=== PATIENT | female | born 1975 | race Caucasian/White ===

== ENCOUNTER 2017-08-09 00:55 | Emergency (ER) | payer MEDICAID, SELFPAY ==
[2017-08-09 00:56] VITALS: BP 123/83; PULSE 58; RESP 20; TEMP 36.9; O2SAT 100; BMI 31.8
--- NOTE | 2017-08-09 01:12 | XR_ITS ---
XR chest 2V HISTORY: ITS.REASON: CHEST PAIN ORDERING PHYSICIAN: Brant Walters MD PATIENT AGE: 41 years COMPARISON: None available FINDINGS: The cardiomediastinal silhouette and pulmonary vascularity are within normal limits. The lungs are clear without infiltrates, suspicious nodules, or pleural effusions. No acute bony abnormalities. IMPRESSION: Negative chest, no acute finding
[2017-08-09 01:27] LABS: Basophils # 0.1 K/mm3 (0-0.2); Basophils % 0.3 % (0.1-2.0); Eosinophils # 0.4 K/mm3 (0.0-0.4); Eosinophils % 3.1 % (0.1-12.0); Hematocrit 38.2 % (37.0-47.0); Hemoglobin 13.3 g/dL (12.2-16.2); Lymphocytes # 4.6 K/mm3 (0.7-4.5); Lymphocytes % 34.5 K/mm3 (10-50); Mean Corpuscular HGB Conc 34.9 g/dL (31.8-35.4); Mean Corpuscular Hemoglobin 31.8 pg (27.0-31.2); Mean Corpuscular Volume 91.2 fl (81-99); Mean Platelet Volume 9.3 fl (7.4-10.4); Monocytes # 0.6 K/mm3 (0.1-1.0); Monocytes % 4.6 % (1.7-9.3); Neutrophils # 7.6 K/mm3 (1.8-7.8); Neutrophils % 57.4 % (37.0-80.0); Platelet Count 215 K/mm3 (142-424); Red Blood Count 4.18 M/mm3 (4.20-5.40); Red Cell Distribution Width 13.1 % (11.5-17.5); White Blood Count 13.3 K/mm3 (4.8-10.8)
--- NOTE | 2017-08-09 01:33 | HMH.EDCP ---
ED Disposition Clinical Impression: Atypical chest pain, Costalchondritis Disposition: Home, Self-Care Condition on Discharge: Good Instructions: DI for Atypical Chest Pain Additional Instructions: use meds and see pcp for follow up Prescriptions: Benzonatate [Tessalon Perle 100mg Cap] 100 mg PO TID #30 cap Referrals: Non User,Provider [Primary Care Provider] - - Critical Care Critical Care Time: No Attestation: On , the high probability of a clinically significant, sudden or life threatening deterioration of the following system(s) required my full and direct attention, intervention and personal management. The time I documented below is in addition to time spent performing reported procedures but includes the following listed in this critical care notation. Medical Decision Making - Medical Records Medical records reviewed: Yes: I reviewed the patient's medical records. Vital Signs: 08/09/17 00:56 08/09/17 02:01 Temperature 98.5 F Temperature Source Oral Pulse Rate [Right Brachial] 58 L 65 Respiratory Rate 20 18 Blood Pressure [Right Arm] 123/83 127/81 Blood Pressure Mean [Right Arm] 96 96 Blood Pressure Source [Right Arm] Automatic Cuff Automatic Cuff Blood Pressure Position [Right Arm] Sitting Sitting 02 Sat by Pulse Oximetry 100 100 Oxygen Delivery Method Room Air Room Air - Lab Data Lab results reviewed: Yes: I reviewed the patient's lab results. Lab Results 08/09/17 01:09: WBC 13.3 H, RBC 4.18 L, Hgb 13.3, Hct 38.2, MCV 91.2, MCH 31.8 H, MCHC 34.9, RDW 13.1, Plt Count 215, MPV 9.3, Neut % (Auto) 57.4, Lymph % (Auto) 34.5, [place] % (Auto) 4.6, Eos % (Auto) 3.1, Baso % (Auto) 0.3, Neut # (Auto) 7.6, Lymph # (Auto) 4.6 H, [place] # (Auto) 0.6, Eos # (Auto) 0.4, Baso # (Auto) 0.1 08/09/17 01:09: Sodium 140, Potassium 3.5, Chloride 104, Carbon Dioxide 28, Anion Gap 11.5, BUN 11, Creatinine 0.72, Estimated Creat Clear 135, Estimated GFR 90, Est GFR ( Amer) 109, Glucose 98, Calcium 8.7, Total Bilirubin 0.3, AST 12 L, ALT 25, Alkaline Phosphatase 93, Total Creatine Kinase 59, CK-MB (CK-2) < 0.5, CK-MB (CK-2) Rel Index 0.8, Troponin I < 0.02, Total Protein 7.0, Albumin 3.5, Globulin 3.5 H, Albumin/Globulin Ratio 1.0 L Result diagrams: 08/09/17 01:09 08/09/17 01:09 Orders (Tests/Meds): ED MEDICATIONS Discontinued Medications Generic Name Dose Route Start Last Admin Trade Name Calin PRN Reason Stop Dose Admin Aspirin 324 mg 08/09/17 01:16 08/09/17 01:17 Aspirin 81mg Chewable Tablet PO 08/09/17 01:17 324 mg ONCE ONE Administration ORDERS Category Date Time Status Chest XR 2 view (NOT portable) [XR chest 2V] Stat Exams 08/09/17 01:12 Taken ECG Request by /Emil Stat Y 08/09/17 01:11 Ordered - Radiology Data #1 Image(s): Chest Image Reviewed: Yes I reviewed the patient's radiology image Preliminary Findings: Normal/NAD - ECG Data Tracing #1 I reviewed this ECG and interpreted as documented below: Ischemic changes: non-specific ST-T wave changes - Andres Inquiry Pt receiving controlled substance: No Chest Pain HPI - General Chief Complaint: Chest Pain Stated Complaint: CHEST PAIN AND SOB Mode of Arrival: Family Vehicle Limitations: No Limitations Description of Symptoms (Recalled from ER Triage Doc. 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
[2017-08-09 01:52] LABS: Alanine Aminotransferase 25 U/L (12-78); Albumin Level 3.5 gm/dL (3.4-5.0); Alkaline Phosphatase 93 U/L (46-116); Anion Gap 11.5 mEq/L (5-15); Aspartate Amino Transferase 12 U/L (15-37); Bilirubin,Total 0.3 mg/dL (0.2-1.0); Blood Urea Nitrogen 11 mg/dL (7-18); Calcium 8.7 mg/dL (8.5-10.1); Carbon Dioxide 28 mmol/L (21.0-32.0); Chloride 104 mmol/L (98-107); Creatine Kinase 59 U/L (26-192); Creatinine Clearance Estimated 135 mL/min (0-300); Creatinine,Serum 0.72 mg/dL (0.55-1.02); Estimated Glomerular Filt Rate 90 ml/min (>60); GFR (African American) 109 ML/MIN (>60); Globulin 3.5 gm/dl (1.3-3.2); Glucose 98 mg/dL (74-106); Potassium 3.5 mmoL/L (3.5-5.1); Sodium 140 mmol/L (136-145); Troponin I < 0.02 ng/ml (0.00-0.06)
[2017-08-09 01:58] LABS: CKMB Relative Index 0.8 U/L (0-4.0); Creatine Kinase MB < 0.5 mg/ml (0.0-3.6)
[2017-08-09 02:01] VITALS: BP 127/81; PULSE 65; RESP 18; O2SAT 100
== END 2017-08-09 02:33 | disposition home or self-care (01) ==
PROVIDERS: Emergency Provider Emergency Medicine
DX: R07.89 Other chest pain (principal); M94.0 Chondrocostal junction syndrome [Tietze]; E11.9 Type 2 diabetes mellitus without complications; F17.210 Nicotine dependence, cigarettes, uncomplicated; Z79.84 Long term (current) use of oral hypoglycemic drugs; Z79.899 Other long term (current) drug therapy
CPT/HCPCS: 71046; 80053; 82550; 82553; 84484; 85025; 93005; 93041; 96374; 99284

== ENCOUNTER 2020-10-21 09:49 | Emergency (ER) | payer OTHER, SELFPAY ==
[2020-10-21 10:00] VITALS: BP 143/84; PULSE 87; RESP 19; TEMP 36.8; O2SAT 100; BMI 32.4
--- NOTE | 2020-10-21 10:14 | XR_ITS ---
PROCEDURE: XR SHOULDER RT MIN 2V CLINICAL INDICATION: INJURY Injury with pain COMPARISON: No exams were available for comparison FINDINGS: No fracture or dislocation. No lytic or blastic change. There is normal mineralization. The joint spaces are well-preserved. No significant degenerative/arthritic changes. No erosive changes evident. Other findings:None. IMPRESSION: No acute findings. Dictated by: Syed Pace MD 10/21/2020 10:51 Syed Pace MD in [place] 10/21/2020 10:51
--- NOTE | 2020-10-21 10:14 | XR_ITS ---
PROCEDURE: XR HUMERUS RT CLINICAL INDICATION: INJURY Pain COMPARISON: No exams were available for comparison FINDINGS: No fracture or dislocation. No lytic or blastic change. There is normal mineralization. The joint spaces are well-preserved. No significant degenerative/arthritic changes. No erosive changes evident. Other findings:None. IMPRESSION: No acute findings. Dictated by: Syed Pace MD 10/21/2020 10:50 Syed Pace MD in [place] 10/21/2020 10:50
--- NOTE | 2020-10-21 10:37 | HMH.EDUTC ---
[facility] [place] Disposition Clinical Impression: Shoulder strain Qualifiers: Encounter type: initial encounter Laterality: right Qualified Code(s): S46.911A - Strain of unspecified muscle, fascia and tendon at shoulder and upper arm level, right arm, initial encounter Disposition: Home, Self-Care Condition on Discharge: Good Instructions: How to Use a Sling, How To Perform RICE (Rest, Ice, Compress, Elevate), Ibuprofen Additional Instructions: *RICE, Rest the extremity, Ice 15-20 minutes 3-4 times daily, Compress- wear the alexia wrap as discussed as much as possible to help reduce swelling and pain, Elevate the extremity when at rest *Sling is for support and help control swelling, use it except in the shower. Be sure that is not to tight but not to loose either *Elevate when resting *Ibuprofen every 6-8 hours as needed for pain an inflammation. If need something more can take Tylenol in between doses of Ibuprofen to help Immediately follow up with your family doctor for new or worsening of symptoms, or no noticeable improvement over the next 3-[address] Bazan office will call you later with appointment Return if needed Straight to ER if life threatening symptoms Referrals: PCP,No [Primary Care Provider] - As needed Catherine Bazan MD [Physician] - As needed Forms: Work/School Release Time of Disposition: 10:56 Medical Decision Making - Andres Inquiry Pt receiving controlled substance: Chantell Campos was queried for this patient: No Vital Signs: 10/21/20 10:00 10/21/20 11:00 Temperature 98.2 F 98.2 F Temperature Source Oral Pulse Rate 87 Pulse Rate [Right Brachial] 87 Respiratory Rate 19 19 Blood Pressure 143/84 H Blood Pressure [Right Arm] 143/84 H Blood Pressure Mean [Right Arm] 103 Blood Pressure Source [Right Arm] Automatic Cuff Blood Pressure Position [Right Arm] Sitting 02 Sat by Pulse Oximetry 100 Oxygen Delivery Method Room Air Orders (Tests/Meds): ED MEDICATIONS Discontinued Medications Generic Name Dose Route Start Last Admin Trade Name Freq PRN Reason Stop Dose Admin Ketorolac Tromethamine 30 mg 10/21/20 10:44 10/21/20 10:49 Ketorolac 60mg/2ml Vial IM 10/21/20 10:45 30 mg ONCE ONE Administration - Radiology Data #1 Image(s): Shoulder Image Reviewed: Yes I reviewed the patient's radiology image Preliminary Findings: No Fracture Seen #2 Image(s): Humerus Image Reviewed: Yes I reviewed the patient's radiology image Preliminary Findings: No Fracture Seen - Physician Consults Physician Consulted: Beni Time: 10:50 Reason -: Orthopedic Eval/Care Comment/Response: Spoke with Dr Bazan office and they advised to sling and they will call her with appointment [facility] [place] HPI - General Stated complaint: fell hurt right arm a/0 10/20 Time Seen by Provider: 10/21/20 10:00 Mode of Arrival: Ambulatory Source of Information: Patient Limitations: No Limitations Description of Symptoms (Recalled from Triage Doc. by RN): PATIENT C/O INJURY TO RIGHT ARM AFTER FALLING IN GYM SHOWER YESTERDAY MORNING HEENT Symptoms (Recalled from RN notes): No Resp Symptoms (Recalled from RN notes): No Skin Symptoms (Recalled from RN notes): No MS Symptoms (Recalled from RN notes): Yes Functional Status (Recalled from RN notes): WNL - History of Present Illness Provider Complaint: Patient state that she slipped and fell in the shower yesterday and reached and grabbed the handle on the door State that as she fell it jerked her right shoulder/upper arm area State that ever since she has been having pain in her upper arm when she tries to raise it or move it certain ways. - Related Data Home Medications Medication Instructions Recorded Confirmed Diclofenac Sodium [Voltaren 100gm 1 applicatio TP BID 08/09/17 10/11/20 Topical Gel] Gabapentin [Neurontin 800mg Tab] 800 mg PO TID 08/09/17 10/11/20 Metformin HCl [Glucophage 500mg 500 mg PO BID 08/09/17 10/11/20 Tablet] Propranolo
[2020-10-21 11:00] VITALS: BP 143/84; PULSE 87; RESP 19; TEMP 36.8; O2SAT 100
== END 2020-10-21 11:07 | disposition home or self-care (01) ==
PROVIDERS: Emergency Provider Nurse Practitioner; PCP Nurse Practitioner
DX: S46.911A Strain of unspecified muscle, fascia and tendon at shoulder and upper arm level, right arm, initial encounter (principal); W18.2XXA Fall in (into) shower or empty bathtub, initial encounter; Y92.838 Other recreation area as the place of occurrence of the external cause; E11.9 Type 2 diabetes mellitus without complications; Z79.84 Long term (current) use of oral hypoglycemic drugs; Z88.2 Allergy status to sulfonamides; Z88.5 Allergy status to narcotic agent
CPT/HCPCS: 73030; 73060; 99202; G0463

== ENCOUNTER → 2020-10-25 08:25 | Outpatient (CLI) | payer OTHER, SELFPAY ==
--- NOTE | 2020-10-25 08:30 | XR_ITS ---
PROCEDURE: XR SHOULDER RT MIN 2V CLINICAL INDICATION: rt shoulder pain COMPARISON: CR XR SHOULDER RT MIN 2V from 10/21/2020 FINDINGS: No fracture or dislocation. No lytic or blastic change. There is normal mineralization. The joint spaces are well-preserved. No significant degenerative/arthritic changes. No erosive changes evident. Other findings:No significant subacromial stenosis IMPRESSION: Negative right shoulder Dictated by: Syed Pace MD 10/25/2020 10:34 Syed Pace MD in [place] 10/25/2020 10:34
== END ==
PROVIDERS: PCP Nurse Practitioner; Visit Provider Orthopaedic Surgery
DX: S46.919A Strain of unspecified muscle, fascia and tendon at shoulder and upper arm level, unspecified arm, initial encounter (principal)
CPT/HCPCS: 73030

== ENCOUNTER 2021-01-30 11:51 | Emergency (ER) | payer OTHER, SELFPAY ==
--- NOTE | 2021-01-30 12:12 | HMH.EDUTC ---
[facility] [place] Disposition Clinical Impression: Dysuria Disposition: Home, Self-Care Condition on Discharge: Good Instructions: DI for Dysuria -- Adult Additional Instructions: Drink plenty of fluids. Take tylenol or ibuprofen for pain or fever. Take the medications as directed. Follow up with your regular doctor. GO TO THE ER FOR ANY WORSENING SYMPTOMS The pyridium will make your urine turn orange, this is an expected side effect. It will stain your clothes if it comes into contact with them. If you begin to have any irritation or yeast infection symptoms take the diflucan. Follow up with your primary care doctor within 24 hours for a recheck. Prescriptions: Fluconazole [Diflucan 150mg tab] 150 mg PO ONCE #1 tab Transmission Status: Received by [id number] Phenazopyridine HCl [Pyridium 200mg Tablet] 200 pow PO TID #6 tab Transmission Status: Received by [id number] Referrals: Dawn Jones APRN [Primary Care Provider] - Time of Disposition: 12:52 Medical Decision Making - Medical Records Medical records reviewed: No: I reviewed the patient's medical records. - Andres Inquiry Pt receiving controlled substance: No Vital Signs: 01/30/21 12:25 01/30/21 12:56 Temperature 98.5 F 97 F L Temperature Source Oral Pulse Rate 108 H Pulse Rate [Right] 107 H Respiratory Rate 16 16 Blood Pressure 153/90 H Blood Pressure [Right Arm] 157/89 H Blood Pressure Mean [Right Arm] 111 Blood Pressure Source [Right Arm] Automatic Cuff Blood Pressure Position [Right Arm] Sitting 02 Sat by Pulse Oximetry 98 - Lab Data Lab results reviewed: Yes: I reviewed the patient's lab results. Lab Results 01/30/21 12:56: Urine Color Yellow, Urine Appearance Turbid, Urine pH 5.5, Ur Specific [place] 1.015, Urine Protein Negative, Urine Glucose (UA) Negative, Urine Ketones Negative, Urine Blood Negative, Urine Nitrate Negative, Urine Bilirubin Negative, Urine Urobilinogen 0.2, Ur Leukocyte Esterase Negative [facility] [place] HPI - General Stated complaint: pelvic/abdominal pain Time Seen by Provider: 01/30/21 12:12 - History of Present Illness Provider Complaint: She has been having lower abdominal discomfort while she urinates for the past 2 days. She has had a uti and she was treated with amoxicillin after the culture report came back. She finished the antibiotic 2 days ago. She did feel better but then she started having her current symptoms. - Related Data Home Medications Medication Instructions Recorded Confirmed Diclofenac Sodium [Voltaren 100gm 1 applicatio TP BID 08/09/17 10/25/20 Topical Gel] Gabapentin [Neurontin 800mg Tab] 800 mg PO TID 08/09/17 10/25/20 Metformin HCl [Glucophage 500mg 500 mg PO BID 08/09/17 10/25/20 Tablet] Propranolol HCl [Propranolol HCl 60 mg PO DAILY 08/09/17 10/25/20 ER] omeprazole 40 mg capsule,delayed 40 mg PO DAILY 30 Days #30 10/17/17 10/25/20 release hepatitis A virus vaccine (PF) IM 10/11/20 10/25/20 1,440 MADI unit/mL intramuscular syringe Previous Rx's Medication Instructions Recorded hydroxyzine pamoate 25 mg capsule 25 mg PO HS #30 cap 10/11/20 Fluconazole [Diflucan 150mg tab] 150 mg PO ONCE #1 tab 01/30/21 Phenazopyridine HCl [Pyridium 200 pow PO TID #6 tab 01/30/21 200mg Tablet] Allergies Allergy/AdvReac Type Severity Reaction Status Date / Time Opioids - Morphine Analogues Allergy Verified 10/25/20 09:11 Sulfa (Sulfonamide Allergy Verified 10/25/20 09:11 Antibiotics) [facility] History - Hepatitis A Screen Attestation statement:: This patient has been screened for Hepatitis A risk factors. I have reviewed the patient's past medical history: Yes Medical History: Reports:: Depression, Diabetes Mellitus Type 2 Denies:: Cancer, Diabetes Mellitus Type 1, Internal Pacemaker, MRSA Other Medical History: Reports: Arthritis, Fibromyalgia, Other Other Surgeries: Yes: No Previous S
[2021-01-30 12:25] VITALS: BP 157/89; PULSE 107; RESP 16; TEMP 36.9; O2SAT 98; BMI 32.1
[2021-01-30 12:56] VITALS: BP 153/90; PULSE 108; RESP 16; TEMP 36.1
[2021-01-30 15:57] LABS: Apearance,Urine Turbid (Clear); Bilirubin,Urine Negative (Negative); Blood, Urine Negative (Negative); Color,Urine Yellow (Yellow); Glucose,Urine (UA) Negative (Negative); Ketones,Urine Negative (Negative); PH,Urine 5.5 (5.0-8.5); Protein,Urine Negative (Negative); Specific Gravity, Urine 1.015 (1.005-1.030); UTC Leukocyte Esterase,Urine Negative (Negative); Urobilinogen,Urine 0.2 EU/dl (0.2)
[2021-01-30 15:58] LABS: UTC Nitrate,Urine Negative (Negative)
== END 2021-01-30 13:26 | disposition home or self-care (01) ==
PROVIDERS: Emergency Provider Nurse Practitioner Family; PCP Nurse Practitioner
DX: N30.00 Acute cystitis without hematuria (principal); E11.9 Type 2 diabetes mellitus without complications; F33.1 Major depressive disorder, recurrent, moderate; F17.210 Nicotine dependence, cigarettes, uncomplicated; Z79.899 Other long term (current) drug therapy
CPT/HCPCS: 81003; 99202; G0463

== ENCOUNTER → 2021-02-08 15:49 | Outpatient (CLI) | payer OTHER, SELFPAY ==
--- NOTE | 2021-02-08 15:57 | CT_ITS ---
PROCEDURE INFORMATION: Exam: CT Abdomen And Pelvis With Contrast Exam date and time: 02/08/2021 3:57 PM Age: 45 years old Clinical indication: Abdominal pain; Localized; Lower; Prior surgery; Patient HX: Rlq abdomen pain with pain in pelvic region when using the restroom x 1 month; Additional info: Rlq abd pain TECHNIQUE: Imaging protocol: Computed tomography of the abdomen and pelvis with contrast. Radiation optimization: All CT scans at this facility use at least one of these dose optimization techniques: automated exposure control; mA and/or kV adjustment per patient size (includes targeted exams where dose is matched to clinical indication); or iterative reconstruction. Contrast material: ISOVUE; Contrast volume: 75 ml; Contrast route: IV; COMPARISON: CR CXR2V XR chest 2V 11/05/2017 10:33 AM FINDINGS: Liver: Normal. No mass. Gallbladder and bile ducts: Gallstones noted. No evidence of cholecystitis. Pancreas: Normal. No ductal dilation. Spleen: Normal. No splenomegaly. Adrenal glands: Normal. No mass. Kidneys and ureters: A few tiny renal hypodensities are seen which are too small to further characterize. No hydronephrosis. Stomach and bowel: Some subtle wall thickening is seen in the ascending colon and in the rectum, but this may be within normal limits. Clinical correlation recommended for possible colitis. Appendix: No evidence of appendicitis. Intraperitoneal space: Unremarkable. No free air. No significant fluid collection. Vasculature: Unremarkable. No abdominal aortic aneurysm. Lymph nodes: Unremarkable. No enlarged lymph nodes. Urinary bladder: The bladder is under distended. Reproductive: Status post hysterectomy. Bilateral cystic structures in the pelvis are most likely ovarian in origin. The one on the left measures 4.5 by 4.3 cm. The one on the right measures 3.6 by 3.3 cm. Bones/joints: Unremarkable. No acute fracture. Soft tissues: Unremarkable. IMPRESSION: 1. Bilateral cystic structures in the pelvis are probably ovarian. These could potentially relate to this patient's symptoms. Recommend further characterization with ultrasound on a non emergent basis. 2. Subtle wall thickening in the ascending colon and rectum may be within normal limits, but could also reflect mild colitis. 3. Cholelithiasis without evidence of cholecystitis. COMMENTS: Consistent with the [employer]'s Incidental Findings Committee white paper (J Am Dawna Radiol 2018): Any incidental renal lesion less than 1 cm or classified as too small to characterize, or any incidental cystic renal lesion characterized as simple-appearing, is likely benign. No follow-up imaging is recommended for these lesions per consensus recommendations based on imaging criteria.
[2021-02-08 16:11] LABS: Blood Urea Nitrogen 5 mg/dl (7-17); Estimated Glomerular Filt Rate 135 ml/min (>60); GFR (African American) 163 ML/MIN (>60)
== END ==
PROVIDERS: PCP Nurse Practitioner Family; Visit Provider Nurse Practitioner Family
DX: R10.31 Right lower quadrant pain (principal)
CPT/HCPCS: 36415; 74177; 82565; 84520; Q9967

== ENCOUNTER → 2021-06-27 11:58 | Outpatient (CLI) | payer OTHER, SELFPAY | PROVIDERS: PCP Emergency Medicine; Visit Provider Nurse Practitioner Family | DX: U07.1 COVID-19 (principal) | CPT/HCPCS: C9803; U0003; U0005 ==

== ENCOUNTER → 2021-09-19 15:25 | Outpatient (CLI) | payer OTHER, SELFPAY ==
[2021-09-19 16:11] LABS: Basophils # 0.1 K/mm3 (0-0.2); Basophils % 1.1 % (0.1-2.0); Eosinophils # 0.2 K/mm3 (0.0-0.4); Eosinophils % 1.7 % (0.1-12.0); Hematocrit 40.1 % (37.0-47.0); Hemoglobin 13.2 g/dL (12.2-16.2); Lymphocytes # 3.4 K/mm3 (0.7-4.5); Mean Corpuscular HGB Conc 32.8 g/dL (31.8-35.4); Mean Corpuscular Hemoglobin 30.9 pg (27.0-31.2); Mean Corpuscular Volume 94.1 fl (81-99); Mean Platelet Volume 8.4 fl (7.4-10.4); Monocytes # 0.6 K/mm3 (0.1-1.0); Monocytes % 4.6 % (1.7-9.3); Neutrophils # 8.3 K/mm3 (1.8-7.8); Neutrophils % 65.6 % (37.0-80.0); Platelet Count 316 K/mm3 (142-424); Red Blood Count 4.26 M/mm3 (4.20-5.40); White Blood Count 12.6 K/mm3 (4.8-10.8)
[2021-09-19 16:41] LABS: Alanine Aminotransferase 17 U/L (12-78); Albumin Level 4.5 g/dl (3.5-5.0); Albumin/Globulin Ratio 1.6 (1.1-1.8); Alkaline Phosphatase 95 U/L (38-126); Anion Gap 13.4 mEq/L (5-15); Aspartate Amino Transferase 19 U/L (14-36); Bilirubin,Total 0.5 mg/dl (0.2-1.3); Blood Urea Nitrogen 9 mg/dl (7-17); Calcium 9.2 mg/dl (8.4-10.2); Carbon Dioxide 28 mmol/L (22.0-30.0); Chloride 102 mmol/L (98-107); Estimated Glomerular Filt Rate 91 ml/min (>60); GFR (African American) 111 ML/MIN (>60); Globulin 2.8 g/dL (1.3-3.2); Glucose 96 mg/dl (74-100); Potassium 4.4 mmoL/L (3.5-5.1); Sodium 139 mmol/L (136-145); Total Protein,Serum 7.3 g/dl (6.3-8.2)
== END ==
LOC: LAB 15:27
PROVIDERS: Visit Provider Specialist
DX: R42 Dizziness and giddiness (principal); G44.309 Post-traumatic headache, unspecified, not intractable
CPT/HCPCS: 36415; 80053; 85025

== ENCOUNTER → 2021-09-21 15:25 | Outpatient (CLI) | payer OTHER, SELFPAY ==
--- NOTE | 2021-09-21 15:32 | CT_ITS ---
FINAL REPORT CLINICAL HISTORY: TBI, headache FINDINGS: Axial images of the head were obtained without contrast. Coronal reformatted images were also obtained.This study was performed with techniques to keep radiation doses as low as reasonably achievable (ALARA). Individualized dose reduction techniques using automated exposure control or adjustment of mA and/or kV according to the patient''s size were employed. There is no evidence of intracranial hemorrhage or mass. The ventricular size is within normal limits. There is left temporal encephalomalacia. There is also an area of left frontal encephalomalacia. There is no evidence of shift of the midline structures. No abnormal extra axial fluid collection is identified. No skull abnormality is seen on the bone window images. IMPRESSION: No acute intracranial abnormality. Reviewed, Interpreted and Dictated by Edi Cassidy III, MD Transcribed by Elisa Goff Authenticated by Edi Cassidy III, MD on 09/21/2021 04:32:[address] [facility]
== END ==
LOC: RAD 15:30
PROVIDERS: PCP Emergency Medicine; Visit Provider Specialist
DX: R42 Dizziness and giddiness (principal); S06.9X9A Unspecified intracranial injury with loss of consciousness of unspecified duration, initial encounter
CPT/HCPCS: 70450

== ENCOUNTER → 2021-10-03 15:31 | Outpatient (CLI) | payer OTHER, SELFPAY | PROVIDERS: PCP Emergency Medicine; Visit Provider Specialist | DX: R42 Dizziness and giddiness (principal); S06.9X9S Unspecified intracranial injury with loss of consciousness of unspecified duration, sequela; G44.329 Chronic post-traumatic headache, not intractable; F39 Unspecified mood [affective] disorder; M79.7 Fibromyalgia; H91.93 Unspecified hearing loss, bilateral; R06.83 Snoring | CPT/HCPCS: 94762 ==

== ENCOUNTER 2021-11-08 17:00 | Outpatient (RCR) | payer OTHER, SELFPAY ==
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
== END 2021-11-08 17:05 | disposition home or self-care (01) ==
LOC: ST 17:00
PROVIDERS: PCP Emergency Medicine; Visit Provider Student in an Organized Health Care Education/Training Program
DX: R47.01 Aphasia
CPT/HCPCS: 92507; 92523; 94762; 97129; 97130

== ENCOUNTER → 2021-12-15 10:14 | Outpatient (CLI) | payer BC, SELFPAY ==
--- NOTE | 2021-12-15 10:14 | CT_ITS ---
FINAL REPORT CLINICAL HISTORY: TBI, worsening of headaches COMPARISON: September 21, 2021 FINDINGS: Axial images of the head were obtained without contrast. Coronal reformatted images were also obtained.This study was performed with techniques to keep radiation doses as low as reasonably achievable (ALARA). Individualized dose reduction techniques using automated exposure control or adjustment of mA and/or kV according to the patient's size were employed. There is left temporal encephalomalacia which is stable. There is no evidence of intracranial hemorrhage or mass. The ventricular size is within normal limits. There is no evidence of shift of the midline structures. No abnormal extra axial fluid collection is identified. No skull abnormality is seen on the bone window images. IMPRESSION: No acute intracranial abnormality. Reviewed, Interpreted and Dictated by Edi Cassidy III, MD Transcribed by Kimberly Pollard Authenticated and [facility]
== END ==
PROVIDERS: PCP Emergency Medicine; Visit Provider Student in an Organized Health Care Education/Training Program
DX: S06.9X9S Unspecified intracranial injury with loss of consciousness of unspecified duration, sequela (principal); R42 Dizziness and giddiness; G44.309 Post-traumatic headache, unspecified, not intractable; F39 Unspecified mood [affective] disorder; H91.90 Unspecified hearing loss, unspecified ear; M79.7 Fibromyalgia; R26.9 Unspecified abnormalities of gait and mobility
CPT/HCPCS: 70450

== ENCOUNTER → 2022-01-06 10:30 | Outpatient (CLI) | payer BC, SELFPAY ==
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
[2022-01-06 11:05] LABS: Blood Urea Nitrogen 11 mg/dl (7-17); Estimated Glomerular Filt Rate 78 ml/min (>60); GFR (African American) 94 ML/MIN (>60)
== END ==
LOC: RAD 10:31
PROVIDERS: PCP Emergency Medicine; Visit Provider Student in an Organized Health Care Education/Training Program
DX: R42 Dizziness and giddiness (principal); S06.9X9A Unspecified intracranial injury with loss of consciousness of unspecified duration, initial encounter
CPT/HCPCS: 36415; 70553; 82565; 84520; A9576

== ENCOUNTER 2022-03-17 14:00 | Outpatient (RCR) | payer BC, SELFPAY | END 2022-03-17 14:05 | disposition home or self-care (01) | LOC: PT 14:00 | PROVIDERS: PCP Emergency Medicine; Visit Provider Student in an Organized Health Care Education/Training Program | DX: R42 Dizziness and giddiness (principal) | CPT/HCPCS: 97110; 97112; 97163; 97164 ==

== ENCOUNTER 2022-04-01 12:19 | Emergency (ER) | payer BC, SELFPAY ==
[2022-04-01 12:36] VITALS: BP 144/79; PULSE 70; RESP 17; TEMP 36.9; O2SAT 100; BMI 29.0
--- NOTE | 2022-04-01 13:07 | EXP.UTC ---
Discharge Plan Disposition Patient Disposition: Home, Self-Care Condition: Good Prescriptions Prescriptions: New cephalexin 500 mg capsule 500 mg PO QID 5 Days Qty: 20 0RF No Action gabapentin 400 mg capsule 400 mg PO TID Qty: 90 2RF Nurtec ODT 75 mg tablet,disintegrating 75 mg PO Q OTHER DAY donepezil 10 mg tablet 10 mg PO DAILY bupropion HCl [Wellbutrin XL] 150 mg tablet extended release 24 hr 150 mg PO DAILY Qty: 30 1RF Qulipta 60 mg tablet 60 mg PO DAILY Qty: 60 4RF estradiol 1 mg tablet See Rx Instructions .ROUTE .COMPLEX Qty: 90 0RF Dose Instruction: TAKE 1 AND 1/2 TABLETS BY MOUTH DAILY Rx Instructions: TAKE 1 AND 1/2 TABLETS BY MOUTH DAILY trazodone 50 mg tablet See Rx Instructions .ROUTE .COMPLEX Qty: 90 0RF Dose Instruction: TAKE 1 TABLET BY MOUTH AT BEDTIME Rx Instructions: TAKE 1 TABLET BY MOUTH AT BEDTIME metformin 850 mg tablet See Rx Instructions .ROUTE .COMPLEX Qty: 180 0RF Dose Instruction: TAKE ONE TABLET BY MOUTH TWICE DAILY WITH MEAL Rx Instructions: TAKE ONE TABLET BY MOUTH TWICE DAILY WITH MEAL aripiprazole 5 mg tablet See Rx Instructions .ROUTE .COMPLEX Qty: 90 0RF Dose Instruction: TAKE 1 TABLET BY MOUTH DAILY Rx Instructions: TAKE 1 TABLET BY MOUTH DAILY Referrals Follow up/Referrals: Brant Walters MD [Primary Care Provider] - See instructions Activity Restrictions/Add. Instructions Additional Instructions/Restrictions: call for appointment to podiatry. Clinical Impressions Clinical Impression: Ingrown right big toenail Instructions Patient Instructions: DI for Infected Ingrown Toenail Discharge ED Provider: Maegan Fu [facility] General Stated complaint: infectef toe Mode of Arrival: Ambulatory Source of Information: Patient and Spouse Limitations: No Limitations Time Seen by Provider: 04/01/22 13:07 Description of Symptoms (Recalled from Triage Doc. by RN): pt comes in with c/o infected right great toe that has been ongoing for 1 week. HEENT Symptoms (Recalled from RN notes): No Resp Symptoms (Recalled from RN notes): No Skin Symptoms (Recalled from RN notes): No MS Symptoms (Recalled from RN notes): No Functional Status (Recalled from RN notes): n/a History of Present Illness Provider Complaint: Pt states that she has been trying to get in with her PCP but he is booked up. Pt states that they have called podiatry but have not been able to get in to see them. Pt relates that her toe is so sore that she can barely walk. She has been soaking in epsom salts with no relief. Related Data Home Medications Medication Instructions Recorded Confirmed rimegepant 75 mg disintegrating 75 mg PO Q OTHER DAY 10/03/21 01/19/22 tablet (Nurtec ODT) donepezil 10 mg tablet 10 mg PO DAILY 10/31/21 01/19/22 Previous Rx's Medication Instructions Recorded gabapentin 400 mg capsule 400 mg PO TID #90 caps 09/14/21 atogepant 60 mg tablet (Qulipta) 60 mg PO DAILY Migraine Headache 10/10/21 #60 tabs bupropion HCl 150 mg 24 hr tablet, 150 mg PO DAILY #30 tabs 01/19/22 extended release (Wellbutrin XL) estradiol 1 mg tablet See Rx Instructions .Route 02/13/22 .COMPLEX #90 tabs metformin 850 mg tablet See Rx Instructions .Route 03/09/22 .COMPLEX #180 tabs trazodone 50 mg tablet See Rx Instructions .Route 03/09/22 .COMPLEX #90 tabs aripiprazole 5 mg tablet See Rx Instructions .Route 03/23/22 .COMPLEX #90 tabs cephalexin 500 mg capsule 500 mg PO QID 5 days #20 caps 04/01/22 Allergies Allergy/AdvReac Type Severity Reaction Status Date / Time latex Allergy Verified 04/01/22 12:39 Opioids - Morphine Analogues Allergy Verified 01/19/22 14:13 Sulfa (Sulfonamide Allergy Verified 01/19/22 14:13 Antibiotics) Worker's Comp Is this a Worker's Comp case?: No PFSH PFSH Social History Smo
[2022-04-01 13:32] VITALS: BP 144/79; PULSE 70; RESP 17; TEMP 36.9
== END 2022-04-01 13:36 | disposition home or self-care (01) ==
PROVIDERS: Emergency Provider Nurse Practitioner Family; PCP Emergency Medicine
DX: L03.031 Cellulitis of right toe (principal); I10 Essential (primary) hypertension; E11.9 Type 2 diabetes mellitus without complications; F32.A Depression, unspecified; F41.9 Anxiety disorder, unspecified; Z79.84 Long term (current) use of oral hypoglycemic drugs; Z79.890 Hormone replacement therapy; Z79.899 Other long term (current) drug therapy; Z88.2 Allergy status to sulfonamides; Z88.5 Allergy status to narcotic agent; Z91.040 Latex allergy status
CPT/HCPCS: 99213; G0463

== ENCOUNTER → 2022-05-31 14:45 | Outpatient (CLI) | payer BC, SELFPAY ==
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
== END ==
LOC: RAD 14:46
PROVIDERS: PCP Emergency Medicine; Visit Provider Student in an Organized Health Care Education/Training Program
DX: R05.9 Cough, unspecified (principal); K21.9 Gastro-esophageal reflux disease without esophagitis
CPT/HCPCS: 71046

== ENCOUNTER → 2022-10-04 23:00 | Outpatient (CLI) | payer BC, SELFPAY ==
[2022-10-04 18:50] LABS: Basophils # 0.1 K/mm3 (0-0.2); Basophils % 0.5 % (0.1-2.0); Eosinophils # 0.2 K/mm3 (0.0-0.4); Eosinophils % 1.7 % (0.1-12.0); Hematocrit 39.6 % (37.0-47.0); Hemoglobin 12.9 g/dL (12.2-16.2); Lymphocytes # 3.1 K/mm3 (0.7-4.5); Lymphocytes % 24.3 % (10-50); Mean Corpuscular HGB Conc 32.6 g/dL (31.8-35.4); Mean Corpuscular Hemoglobin 29.3 pg (27.0-31.2); Mean Corpuscular Volume 89.8 fl (81-99); Mean Platelet Volume 8.9 fl (7.4-10.4); Monocytes # 0.6 K/mm3 (0.1-1.0); Monocytes % 4.5 % (1.7-9.3); Neutrophils # 8.9 K/mm3 (1.8-7.8); Platelet Count 320 K/mm3 (142-424); Red Blood Count 4.41 M/mm3 (4.20-5.40); Red Cell Distribution Width 14.1 % (11.5-17.5); White Blood Count 12.8 K/mm3 (4.8-10.8)
[2022-10-04 19:12] LABS: Alanine Aminotransferase 22 U/L (12-78); Albumin Level 4.3 g/dl (3.5-5.0); Albumin/Globulin Ratio 1.5 (1.1-1.8); Alkaline Phosphatase 94 U/L (38-126); Anion Gap 14.3 mEq/L (5-15); Aspartate Amino Transferase 24 U/L (14-36); Bilirubin,Total 0.7 mg/dl (0.2-1.3); Blood Urea Nitrogen 11 mg/dl (7-17); Calcium 9.1 mg/dl (8.4-10.2); Carbon Dioxide 24 mmol/L (22.0-30.0); Chloride 102 mmol/L (98-107); Chol/HDL Ratio 3.9 (1-3.5); Cholesterol 209 mg/dl (140-200); Estimated Glomerular Filt Rate 109 ml/min (>60); GFR (African American) 131 ML/MIN (>60); Globulin 2.8 g/dL (1.3-3.2); Glucose 91 mg/dl (74-100); HDL Cholesterol 53 mg/dl (40-60); Potassium 4.3 mmoL/L (3.5-5.1); Sodium 136 mmol/L (136-145); Total Protein,Serum 7.1 g/dl (6.3-8.2); Triglycerides 384 mg/dl (30-150); VLDL Cholesterol 77 mg/dL (0-40)
[2022-10-04 19:23] LABS: Direct LDL Cholesterol 62.19 mg/dL (100-129)
[2022-10-04 19:34] LABS: Free T4 (Free Thyroxine) 0.94 ng/dl (0.78-2.19)
[2022-10-04 19:35] LABS: 25-OH Vitamin D, Total 44.9 ng/mL (30-100)
[2022-10-04 19:42] LABS: Thyroid Stimulating Hormone 1.68 uIU/mL (0.465-4.68)
== END ==
PROVIDERS: PCP Emergency Medicine; Visit Provider Emergency Medicine
DX: E11.42 Type 2 diabetes mellitus with diabetic polyneuropathy (principal); E55.9 Vitamin D deficiency, unspecified; Z79.84 Long term (current) use of oral hypoglycemic drugs
CPT/HCPCS: 80053; 80061; 82306; 84439; 84443; 85025

== ENCOUNTER → 2023-02-09 12:57 | Outpatient (CLI) | payer OTHER, SELFPAY ==
[2023-02-09 13:07] LABS: Amphetamine/Metha Screen,Urine Positive ng/ml (<1000)
[2023-02-09 13:08] LABS: Barbiturates Screen,Urine Negative ng/ml (<200)
[2023-02-09 13:09] LABS: Benzodiazepines Screen,Urine Negative ng/ml (<200); Cannabinoid Screen,Urine Negative ng/ml (<50)
[2023-02-09 13:10] LABS: Cocaine Screen,Urine Negative ng/ml (<300)
[2023-02-09 13:11] LABS: Methadone Screen,Urine Negative ng/ml (<300); Opiate Screen,Urine Negative ng/ml (<300)
[2023-02-09 13:12] LABS: Phencyclidine Screen,Urine Negative ng/ml (<25)
== END ==
LOC: LAB.DROPOF 12:57
PROVIDERS: PCP Emergency Medicine; Visit Provider Emergency Medicine
DX: Z79.899 Other long term (current) drug therapy (principal)
CPT/HCPCS: 80305

== ENCOUNTER → 2023-02-26 12:42 | Outpatient (CLI) | payer OTHER, SELFPAY ==
[2023-02-26 12:47] LABS: Amphetamine/Metha Screen,Urine Positive ng/ml (<1000); Barbiturates Screen,Urine Negative ng/ml (<200); Benzodiazepines Screen,Urine Negative ng/ml (<200); Cannabinoid Screen,Urine Negative ng/ml (<50); Cocaine Screen,Urine Negative ng/ml (<300); Methadone Screen,Urine Negative ng/ml (<300); Opiate Screen,Urine Positive ng/ml (<300)
[2023-02-26 12:56] LABS: Phencyclidine Screen,Urine Negative ng/ml (<25)
== END ==
LOC: LAB.DROPOF 12:43
PROVIDERS: PCP Emergency Medicine; Visit Provider Emergency Medicine
DX: Z79.899 Other long term (current) drug therapy (principal)
CPT/HCPCS: 80305

== ENCOUNTER → 2023-04-02 11:19 | Outpatient (CLI) | payer OTHER, SELFPAY ==
[2023-04-02 16:44] LABS: Benzodiazepines Screen,Urine Negative ng/ml (<200)
[2023-04-02 16:45] LABS: Amphetamine/Metha Screen,Urine Negative ng/ml (<1000); Barbiturates Screen,Urine Negative ng/ml (<200)
[2023-04-02 16:46] LABS: Cannabinoid Screen,Urine Negative ng/ml (<50); Methadone Screen,Urine Negative ng/ml (<300)
[2023-04-02 16:47] LABS: Cocaine Screen,Urine Negative ng/ml (<300)
[2023-04-02 16:48] LABS: Opiate Screen,Urine Positive ng/ml (<300)
[2023-04-02 16:49] LABS: Phencyclidine Screen,Urine Negative ng/ml (<25)
== END ==
LOC: LAB.DROPOF 04-03 08:42
PROVIDERS: PCP Emergency Medicine; Visit Provider Emergency Medicine
DX: Z79.899 Other long term (current) drug therapy (principal)
CPT/HCPCS: 80305

== ENCOUNTER 2023-04-19 11:00 | Outpatient (RCR) | payer OTHER, SELFPAY ==
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
--- NOTE | 2023-04-06 15:50 | HMH.RHREAS ---
Rehab Reassessment Rehab OP Re-assessment Start: 03/07/23 10:09 Freq: Status: Active Protocol: Document 04/06/23 15:03 KRISTEN (Rec: 04/06/23 15:50 KRISTEN [id number]) E-signed By Zev Padilla, PT Oswestry Index Section 1 Pain Intensity The pain comes and goes and is severe Section 2 Personal Care (Washing,Dresing) increase the pain and I find it necessary to change my way of doing it Section 3 Lifting I can only lift very light weights at most Section 4 Walking I cannot walk more than one mile wihtout increasing pain Section 5 Sitting Pain prevents me from sitting for more than 1/2 hour Section 6 Standing I cannot stand more than 1/2 hour without increasing pain Section 7 Sleeping Because of my pain, my normal night's sleep is less than 4 hours Section 8 Social Life Pain has no significant effect on my social life apart from limiting Section 9 Traveling I get some pain when traveling , but none of my usual forms of travel m Section 10 Changing Degreee of Pain My pain is neither getting better or worse Score and Risk Level Oswestry Sc 29 Oswestry Risk Level Severe Disability Rehab Re-assessment Subjective Subjective Patient reports 20% improvement since start of care. Objective Objective Notes AROM: flx 62; ext 12; SBr 22; SBl 27 Myotomes: R WNL; L 4/5 L2-4 Pain: 8/10 today; 8/10 at worst over past week TTP: L QL 3/4 Assessment Progress Assessment Progressing as Expected Assessment Notes Patient has been seen for 5 treatment visits to date. SI special tests indicate L upslip of the innominant, consistent with patient pain distribution. Patient would benefit from continuing with skilled PT services to address functional limitations with
== END 2023-04-19 11:05 | disposition home or self-care (01) ==
LOC: PT 11:00
PROVIDERS: PCP Emergency Medicine; Visit Provider Emergency Medicine
DX: M54.16 Radiculopathy, lumbar region (principal); M54.50 Low back pain, unspecified
CPT/HCPCS: 97010; 97014; 97110; 97163; 97164; 97530; 97535; G0283

== ENCOUNTER → 2023-04-24 07:12 | Outpatient (CLI) | payer OTHER, SELFPAY ==
[2023-04-25 05:02] LABS: Amphetamine/Metha Screen,Urine Positive ng/ml (<1000); Barbiturates Screen,Urine Negative ng/ml (<200)
[2023-04-25 05:04] LABS: Benzodiazepines Screen,Urine Negative ng/ml (<200); Cannabinoid Screen,Urine Negative ng/ml (<50)
[2023-04-25 05:05] LABS: Cocaine Screen,Urine Negative ng/ml (<300)
[2023-04-25 05:06] LABS: Methadone Screen,Urine Negative ng/ml (<300); Opiate Screen,Urine Negative ng/ml (<300)
[2023-04-25 05:07] LABS: Phencyclidine Screen,Urine Negative ng/ml (<25)
== END ==
LOC: LAB.DROPOF 04-25 07:13
PROVIDERS: PCP Emergency Medicine; Visit Provider Emergency Medicine
DX: M54.16 Radiculopathy, lumbar region (principal)
CPT/HCPCS: 80305

== ENCOUNTER 2023-05-10 12:02 | Emergency (ER) | payer OTHER, SELFPAY ==
[2023-05-10 12:20] VITALS: BP 145/88; PULSE 97; RESP 20; TEMP 37.2; O2SAT 98; BMI 29.1
--- NOTE | 2023-05-10 12:27 | EXP.UTC ---
Discharge Plan Disposition Patient Disposition: Home, Self-Care Condition: Good Prescriptions Prescriptions: New amoxicillin [amoxicillin] 500 mg tablet 500 mg PO TID 10 Days Qty: 30 0RF benzonatate [benzonatate] 100 mg capsule 100 mg PO TIDP PRN (Reason: Cough) Qty: 30 0RF methylprednisolone 4 mg Tablets,Dose Pack 4 mg PO DIRECTED Qty: 21 0RF No Action diclofenac sodium 1 % gel 2 g topical QID Qty: 100 0RF Rx Instructions: apply to single elbow, wrist or hand; for hand includes palm/fingers/back of hand lidocaine 5 % adhesive patch,medicated 1 patch topical DAILY Qty: 30 0RF Rx Instructions: leave on most painful area for up to 12 hrs hydrocodone-acetaminophen 5-325 mg tablet 1 tab PO TID Qty: 63 0RF Nurtec ODT 75 mg tablet,disintegrating 75 mg PO PRN (Reason: migraine headache) gabapentin 600 mg tablet 600 mg PO TID Qty: 90 1RF pantoprazole [Protonix] 40 mg tablet,delayed release (DR/EC) 40 mg PO DAILY Qty: 30 2RF trazodone 50 mg tablet See Rx Instructions .ROUTE .COMPLEX Qty: 90 0RF Dose Instruction: TAKE 1 TABLET BY MOUTH AT BEDTIME Rx Instructions: TAKE 1 TABLET BY MOUTH AT BEDTIME metformin 850 mg tablet See Rx Instructions .ROUTE .COMPLEX Qty: 180 0RF Dose Instruction: TAKE ONE TABLET BY MOUTH TWICE DAILY WITH MEAL Rx Instructions: TAKE ONE TABLET BY MOUTH TWICE DAILY WITH MEAL estradiol 1 mg tablet See Rx Instructions .ROUTE .COMPLEX Qty: 90 0RF Dose Instruction: TAKE 1 AND 1/2 TABLETS BY MOUTH DAILY Rx Instructions: TAKE 1 AND 1/2 TABLETS BY MOUTH DAILY bupropion HCl [Wellbutrin XL] 150 mg tablet extended release 24 hr 150 mg PO DAILY Qty: 30 1RF Ozempic 0.25 mg or 0.5 mg (2 mg/3 mL) pen injector See Rx Instructions .ROUTE .COMPLEX Qty: 3 0RF Dose Instruction: INJECT 0.25MG SUBCUTANEOUSLY ONCE WEEKLY FOR 4 WEEKS, THEN 0.5MG WEEKLY Rx Instructions: INJECT 0.25MG SUBCUTANEOUSLY ONCE WEEKLY FOR 4 WEEKS, THEN 0.5MG WEEKLY amlodipine 5 mg tablet See Rx Instructions .ROUTE .COMPLEX Qty: 90 0RF Dose Instruction: TAKE 1 TABLET BY MOUTH DAILY Rx Instructions: TAKE 1 TABLET BY MOUTH DAILY famotidine 40 mg tablet 40 mg PO HS Qty: 60 4RF amitriptyline 25 mg tablet See Rx Instructions .ROUTE .COMPLEX Qty: 60 0RF Dose Instruction: TAKE 2 TABLETS BY MOUTH EVERY NIGHT AT BEDTIME Rx Instructions: TAKE 2 TABLETS BY MOUTH EVERY NIGHT AT BEDTIME amantadine HCl 100 mg tablet See Rx Instructions .ROUTE .COMPLEX Qty: 180 0RF Dose Instruction: TAKE 1 TABLET BY MOUTH TWICE DAILY Rx Instructions: TAKE 1 TABLET BY MOUTH TWICE DAILY phentermine [Adipex-P] 37.5 mg tablet 37.5 mg PO DAILY Qty: 30 0RF Rx Instructions: must administer 30 minutes before or 1-2 hours after breakfast Referrals Follow up/Referrals: Brant Walters MD [Primary Care Provider] - See instructions Activity Restrictions/Add. Instructions Additional Instructions/Restrictions: Drink plenty of fluids. Take tylenol or ibuprofen for pain or fever. Take the medications as directed. Follow up with your regular doctor. GO TO THE ER FOR ANY WORSENING SYMPTOMS Clinical Impressions Clinical Impression: Pharyngitis Instructions Patient Instructions: Sore Throat, DI for Pharyngitis/Tonsillopharyngitis -- Adult Discharge ED Provider: Vikram Stoddard [facility] General Stated complaint: sore throat Mode of Arrival: Ambulatory Source of Information: Patient Limitations: No Limitations Time Seen by Provider: 05/10/23 12:26 Description of Symptoms (Recalled from Triage Doc. by RN): PATIENT C/O SORE THROAT X 2 DAYS HEENT Symptoms (Recalled from RN notes): Yes Resp Symptoms (Recalled from RN notes): No Skin Symptoms (Recalled from RN notes): No MS Symptoms (Recalled from RN notes): No Functional Status (Recalled from RN notes):
[2023-05-10 12:32] LABS: UTC Strep Screen (Rapid) Negative (Negative)
[2023-05-10 12:40] VITALS: BP 145/88; PULSE 97; RESP 20; TEMP 37.2; O2SAT 98
== END 2023-05-10 12:44 | disposition home or self-care (01) ==
PROVIDERS: Emergency Provider Nurse Practitioner Family; PCP Emergency Medicine
DX: J02.9 Acute pharyngitis, unspecified (principal); E11.9 Type 2 diabetes mellitus without complications; F33.9 Major depressive disorder, recurrent, unspecified; Z79.84 Long term (current) use of oral hypoglycemic drugs
CPT/HCPCS: 87880; 99212; 99214; G0463

== ENCOUNTER → 2023-06-14 07:00 | Outpatient (CLI) | payer OTHER, SELFPAY ==
[2023-06-14 19:03] LABS: Alanine Aminotransferase 22 U/L (12-78); Albumin Level 4.4 g/dl (3.5-5.0); Albumin/Globulin Ratio 1.5 (1.1-1.8); Alkaline Phosphatase 81 U/L (38-126); Anion Gap 14.3 mEq/L (5-15); Aspartate Amino Transferase 27 U/L (14-36); Bilirubin,Total 0.6 mg/dl (0.2-1.3); Blood Urea Nitrogen 13 mg/dl (7-17); Calcium 9.1 mg/dl (8.4-10.2); Carbon Dioxide 24 mmol/L (22.0-30.0); Chloride 102 mmol/L (98-107); Estimated Glomerular Filt Rate 90 ml/min (>60); GFR (African American) 109 ML/MIN (>60); Globulin 2.9 g/dL (1.3-3.2); Glucose 95 mg/dl (74-100); Potassium 4.3 mmoL/L (3.5-5.1); Sodium 136 mmol/L (136-145); Total Protein,Serum 7.3 g/dl (6.3-8.2)
[2023-06-14 19:05] LABS: Basophils % 0.4 % (0.1-2.0); Eosinophils # 0.2 K/mm3 (0.0-0.4); Eosinophils % 2.1 % (0.1-12.0); Hematocrit 40.3 % (37.0-47.0); Hemoglobin 13.4 g/dL (12.2-16.2); Lymphocytes # 2.9 K/mm3 (0.7-4.5); Lymphocytes % 30.7 % (10-50); Mean Corpuscular HGB Conc 33.2 g/dL (31.8-35.4); Mean Corpuscular Volume 90.5 fl (81-99); Mean Platelet Volume 9.5 fl (7.4-10.4); Monocytes # 0.5 K/mm3 (0.1-1.0); Monocytes % 4.8 % (1.7-9.3); Neutrophils # 5.8 K/mm3 (1.8-7.8); Neutrophils % 62.1 % (37.0-80.0); Platelet Count 289 K/mm3 (142-424); Red Blood Count 4.46 M/mm3 (4.20-5.40); White Blood Count 9.4 K/mm3 (4.8-10.8)
[2023-06-14 19:18] LABS: Hemoglobin A1C 4.8 % (4.0-6.0)
[2023-06-14 19:29] LABS: Benzodiazepines Screen,Urine Negative ng/ml (<200)
[2023-06-14 19:30] LABS: Amphetamine/Metha Screen,Urine Negative ng/ml (<1000)
[2023-06-14 19:31] LABS: Barbiturates Screen,Urine Negative ng/ml (<200); Cannabinoid Screen,Urine Negative ng/ml (<50)
[2023-06-14 19:32] LABS: Cocaine Screen,Urine Negative ng/ml (<300); Methadone Screen,Urine Negative ng/ml (<300)
[2023-06-14 19:33] LABS: Opiate Screen,Urine Positive ng/ml (<300)
[2023-06-14 19:34] LABS: Phencyclidine Screen,Urine Negative ng/ml (<25)
[2023-06-14 19:35] LABS: Creatinine,Urine Random 231 mg/dL (Not Estab.)
[2023-06-14 20:08] LABS: Vitamin B12 327 pg/mL (239-931)
[2023-06-14 20:10] LABS: Folate 6.82 ng/mL
== END ==
PROVIDERS: PCP Internal Medicine; Visit Provider Internal Medicine
DX: E11.42 Type 2 diabetes mellitus with diabetic polyneuropathy (principal); M54.50 Low back pain, unspecified; S06.9XAA Unspecified intracranial injury with loss of consciousness status unknown, initial encounter; E66.9 Obesity, unspecified; Z68.29 Body mass index [BMI] 29.0-29.9, adult; F32.9 Major depressive disorder, single episode, unspecified; Z79.84 Long term (current) use of oral hypoglycemic drugs; Z79.899 Other long term (current) drug therapy
CPT/HCPCS: 80053; 80305; 82043; 82306; 82570; 82607; 82746; 83036; 84443; 85025

== ENCOUNTER → 2023-06-20 08:59 | Outpatient (CLI) | payer OTHER, SELFPAY ==
--- NOTE | 2023-06-20 09:00 | MR_ITS ---
FINAL REPORT CLINICAL HISTORY: back pain FINDINGS: Multiplanar MR imaging of the lumbar spine was performed without contrast. On the sagittal T2-weighted images, no significant disc degeneration is identified. Endplate changes are seen at T11-12. The vertebral alignment is normal. There is no evidence of fracture. No bony mass is identified. The conus has an unremarkable appearance. T11-12: A bulge is present with anterior osteophytes. No significant neural foraminal narrowing is identified. T12-L1: Unremarkable. L1-2: Unremarkable. L2-3: Unremarkable. L3-4: An annular bulge is present. A small left foraminal disc protrusion is present. There is no significant canal stenosis or neural foraminal narrowing. L4-5: An annular bulge is present. There is no significant canal stenosis or neural foraminal narrowing. L5-S1: There is no significant canal stenosis or neural foraminal narrowing. IMPRESSION: T11-12 annular bulge with anterior osteophytes and endplate reactive changes. Small left foraminal L3-4 disc protrusion without significant canal stenosis or neural foraminal narrowing. Authenticated and [facility]
== END ==
LOC: RAD 09:00
PROVIDERS: PCP Internal Medicine; Visit Provider Emergency Medicine
DX: M54.16 Radiculopathy, lumbar region (principal)
CPT/HCPCS: 72148; 76376

== ENCOUNTER 2023-11-08 12:36 | Outpatient (CLI) | payer SELFPAY ==
--- NOTE | 2023-11-08 12:44 | XR_ITS ---
FINAL REPORT CLINICAL HISTORY: CHRONIC DIVYA LOW BACK PAIN W/SCIATICA FINDINGS: LUMBAR SPINE 4 views were obtained. There is no acute fracture. Vertebrae are normal height. There is no malalignment. The disc spaces are preserved. There is no soft tissue abnormality. IMPRESSION: No acute bony abnormality. Reviewed, Interpreted and Dictated by Chilo Pollard MD Transcribed by Kimberly Pollard Authenticated and [facility]
== END 2023-11-08 23:59 | disposition home or self-care (01) ==
LOC: RAD 12:39
PROVIDERS: PCP Internal Medicine; Visit Provider Physician Assistant Surgical
DX: M54.41 Lumbago with sciatica, right side (principal); M54.42 Lumbago with sciatica, left side; M47.816 Spondylosis without myelopathy or radiculopathy, lumbar region; G89.29 Other chronic pain
CPT/HCPCS: 72110